=== PATIENT | female | born 1995 | race African-American/Black ===

== ENCOUNTER 2017-04-07 09:49 | Emergency (ER) | payer SELFPAY ==
[2017-04-07] MEDS ORDERED: IOHEXOL 300MG/ML 100 ML VIAL IVP ONE (09:50)
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
[2017-04-07 10:52] LABS: % EOSINOPHILS 1.9 % (0.0-5.0); % LYMPHOCYTES 19.7 % (20.0-50.0); % MONOCYTES 5.2 % (2.0-10.0); % NEUTROPHILS 73.2 % (40.0-80.0); HEMATOCRIT 32.3 % (35.0-45.0); HEMOGLOBIN 10.6 gm/dL (11.7-15.5); MEAN CELL VOLUME 70.9 fl (81-100); MEAN CORPUSCULAR HEMOGLOBIN 23.3 pg (27.0-31.0); MEAN CORPUSCULAR HGB CONC 32.8 pg (28.0-36.0); MEAN PLATELET VOLUME 9.6 fl; NEUTROPHILE ABSOLUTE 9.4 Th/cmm (1.8-8.0); PLATELET COUNT 245 Th/cmm (150-400); RED BLOOD COUNT 4.55 Mil/cmm (3.80-5.10); RED CELL DISTRIBUTION WIDTH 15.4 % (11.5-20.0)
[2017-04-07 10:53] LABS: WHITE BLOOD COUNT 12.8 Th/cmm (4.8-10.8)
[2017-04-07 11:00] LABS: INR 0.9 (0.5-1.4); PROTHROMBIN TIME (TEST) 9.4 SECONDS (9.5-11.5)
[2017-04-07 11:03] LABS: URINE BILIRUBIN NEGATIVE (NEGATIVE); URINE BLOOD NEGATIVE (NEGATIVE); URINE COLOR YELLOW; URINE GLUCOSE (UA) NEGATIVE (NEGATIVE); URINE KETONE NEGATIVE (NEGATIVE); URINE PH 6.5 (4.6 - 8.0); URINE PROTEIN NEGATIVE (NEGATIVE); URINE UROBILINOGEN 0.2 E.U./dL (0.2 - 1.0)
[2017-04-07 11:04] LABS: CHOLESTEROL 127 mg/dL (<200); TRIGLYCERIDES 116 mg/dL (<150)
[2017-04-07 11:06] LABS: ALB/GLOB RATIO 1.3 (1.0-1.8); ALKALINE PHOSPHATASE 58 U/L (34-104); ANION GAP 8.6 (7.0-16.0); BILIRUBIN,TOTAL 0.2 mg/dL (0.3-1.0); BUN - UREA NITROGEN 13 mg/dL (7-25); BUN/CREATININE RATIO 16.3; CALCIUM SERUM 9.5 mg/dL (8.6-10.3); CARBON DIOXIDE 23.2 mEq/L (21.0-31.0); CHLORIDE 106 mEq/L (98-107); CREATININE - SERUM 0.8 mg/dL (0.6-1.2); GLUCOSE 102 mg/dL (70-105); POTASSIUM SERUM 3.8 mEq/L (3.5-5.1); SGOT 20 U/L (13-39); SGPT/ALT 20 U/L (7-52); SODIUM SERUM 134 mEq/L (136-145)
[2017-04-07 11:07] LABS: URINE BACTERIA NONE SEEN /hpf (NONE SEEN); URINE EPITHELIAL CELLS FEW /lpf (FEW); URINE RBC NONE SEEN /hpf (0-5); URINE WBC 0-2 /hpf (0-5)
[2017-04-07 11:22] LABS: AMPHETAMINE URINE NEGATIVE (NEGATIVE); BARBITURATES URINE NEGATIVE (NEGATIVE); METHADONE URINE NEGATIVE (NEGATIVE)
[2017-04-07] MEDS ORDERED: cefTRIAXone 1 GM in Sodium Chloride 0.9% 50 ML IV ONE (11:37)
--- NOTE | 2017-04-07 12:33 | Diagnostic Imaging Report ---
CT abdomen and pelvis with intravenous contrast Indication: Lower quadrant pain Comparison: None, Technique: Axial images were obtained from the lung bases to the bilateral proximal femurs with IV contrast. Coronal reconstructions were made. total DLP: [id number], CTDI13.6 FINDINGS: Hypoventilatory changes of the lung bases are noted. There is fatty infiltration of the liver. No evidence of focal hepatic, splenic, pancreatic, or adrenal lesions. No subdural hydronephrosis or focal renal lesions. Bilateral adnexal cystic changes are seen most pronounced on the right side measuring 5.2 x 1 cm. No evidence of acute appendicitis. No evidence of bowel obstruction. There is focal thickening versus under distention of the distal duodenum wall (image 31, series 2). No evidence of free air. No free fluid. Osseous structures demonstrate no acute abnormalities. Mild degenerative changes of SI joints are noted. IMPRESSION: Bilateral adnexal fullness, right greater than left, on the right side measuring 5.2 x 1 cm. Findings may be due to follicular cystic changes. A short-term follow-up ultrasound would provide additional detail and assessment. Underdistention versus focal bowel wall thickening of the distal duodenum. Inflammatory or infiltrative process cannot be excluded. Please correlate with clinical findings. No evidence of acute appendicitis.
--- NOTE | 2017-04-07 16:04 | Diagnostic Imaging Report ---
Pelvic ultrasound HISTORY: Pain The exam is limited to transabdominal sonographic technique as the patient declined in the vaginal sonographic evaluation. There is a normal uterine size (9.0 x 3.7 x 4.8 cm). No focal myometrial lesions are seen. In the major most prominent (10 mm thickness). The right ovary measures 3.6 x 2.2 x 2.6 cm. Several cysts are seen. The largest measures 1.6 cm. The left ovary measures 3.4 x 2.2 cm. Several cysts are noted. The largest measures 1.1 cm. No free fluid in the pelvis. IMPRESSION: 1. Bilateral ovarian cystic changes 2. Prominent endometrium (10 mm). The finding should be correlated clinically and with the menstrual status.
== END 2017-04-07 15:23 | disposition home or self-care (01) ==
LOC: ER 09:49
DX: I10 Essential (primary) hypertension (principal); D72.829 Elevated white blood cell count, unspecified; N83.202 Unspecified ovarian cyst, left side; N83.201 Unspecified ovarian cyst, right side; Z88.2 Allergy status to sulfonamides
CPT/HCPCS: 99285; 96365; 76856; 74177; 84484; 36415; 83605; 80307; 84443; 86592; 85025; 85610; 81001; 81025; 80053; 80061; 87040; J0696; Q9967